=== PATIENT | male | born 2000 | race Caucasian/White ===

== ENCOUNTER 2020-01-16 09:01 | Outpatient (CLI) | payer BC, SELFPAY ==
--- NOTE | 2020-01-16 09:00 | DI.RAD_ITS ---
EXAM: XR LUMBAR SPINE COMPLETE INDICATION: acute left low back pain, ?pars defect. COMPARISON: No exams were available for comparison TECHNIQUE: 2D digital imaging was performed. FINDINGS: Mild anterior wedging of the T10, T11, L1, L2 and L3 vertebral bodies. Schmorl's nodes are seen at t hese levels. There is [id number] narrowing of the L1-2 and L2-3 disc spaces. There is overlap of bony structures at the L5 level on the oblique images. There is probable left L5 spondylolysis. No spondylolisthesis is seen. IMPRESSION: Chronic appearing mild vertebral body deformities with Schmorl's nodes at these levels. Probable left L5 spondylolysis. DATA REPOSITORY: RADIATION DOSE DELIVERED:
== END 2020-01-16 09:21 ==
PROVIDERS: PCP Pediatrics; Visit Provider Student in an Organized Health Care Education/Training Program
DX: M54.5 Low back pain (principal); M51.44 Schmorl's nodes, thoracic region; M51.46 Schmorl's nodes, lumbar region
CPT/HCPCS: 72110

== ENCOUNTER 2020-02-03 00:51 | Outpatient (CLI) | payer BC, SELFPAY ==
--- NOTE | 2020-02-03 11:04 | DI.NM_ITS ---
EXAM: NM BONE SCAN WHOLE BDY W/SPECT CLINICAL HISTORY: ?L5 PARS DEFECT, M43.00 SPONDYLOSIS SITE UNSPECIFIED. TECHNIQUE: Injected Dose: 24 mCi Tc-99m MDP Delayed Images: 2-[address] was performed. COMPARISON: No exams were available for comparison FINDINGS: Symmetric axial uptake. Bilateral renal excretion is identified. There is a focus of increased radiot racer uptake on the left in the lumbar spine corresponding to the pars defect at L5. Note is made of bilateral L5 pars defects. No spondylolisthesis is present. Multiple Schmorl's nodes are identified in the lower thoracic and lumbar spine. IMPRESSION: Focus of increased radiotracer uptake corresponding to the left pars defect at L5. DATA REPOSITORY:
== END 2020-02-03 01:11 ==
PROVIDERS: PCP Pediatrics; Visit Provider Student in an Organized Health Care Education/Training Program
DX: M43.06 Spondylolysis, lumbar region (principal); M51.45 Schmorl's nodes, thoracolumbar region
CPT/HCPCS: 78306; 78830

== ENCOUNTER 2020-07-01 02:26 | Outpatient (CLI) | payer BC, SELFPAY ==
[2020-07-02 09:10] LABS: Hemoglobin S Screen Negative (Negative)
== END 2020-07-01 02:46 ==
PROVIDERS: PCP Pediatrics; Visit Provider Nurse Practitioner Family
DX: Z13.0 Encounter for screening for diseases of the blood and blood-forming organs and certain disorders involving the immune mechanism (principal)
CPT/HCPCS: 36415; 85660

== ENCOUNTER 2021-07-10 17:58 | Emergency (ER) | payer BC, SELFPAY ==
[2021-07-10 18:06] VITALS: BP 137/65; PULSE 42; RESP 16; TEMP 37.4; O2SAT 100
--- NOTE | 2021-07-10 19:00 | DI.CT_ITS ---
Exam(s) CT NECK W EXAM: CT NECK W CLINICAL HISTORY: enlarged tonsils w/ large lymph nodes, r/o maligna. TECHNIQUE: Imaging Protocol: Axial CT angiography was performed with multi-slice acquisition and mu lti-planar and/or 3D reconstructions. CONTRAST MATERIAL: Intravenous: Omnipaque 350 Contrast volume:structured data in ml COMPARISON: No exams were available for comparison FINDINGS: There is adenoid hypertrophy in the nasopharynx. Both tonsillar pillars are symmetrically prominent causing some narrowing of the oropharynx at this l evel. However, there is no discrete ring-enhancing abscess discernible. Free edge of the epiglottis appears unremarkable as do the valleculae I and aryepiglottic folds. The re is no evidence of mass at the level of the vocal cords and subglottic airway. Thyroid gland size is normal. No obvious thyroid nodules. The parotid and submandibular glands appear unremarkable. There are multiple enlarged lymph nodes both sides the neck. Osseous: Cervical vertebrae appear unremarkable. IMPRESSION: 1. Symmetrical enlargement of both tonsillar pillars as well as tissue in the nasopharynx which is mo st probably hypertrophied adenoid tissue. There is no obvious abscess. Bilateral cervical adenopath y is noted. 2. First consideration is for infectious etiology but cannot exclude lymphoma and other lymphoprolife rative disease is. Correlation with clinical findings and history recommended. This study 1st read by [facility]. RADIATION DOSE DELIVERED: 505.28mGy.cm Total DLP DATA REPOSITORY: All CT scans at this facility are submitted to the National Radiology Data Registry (NRDR) Dose Index Registry (DIR) with the [employer] (ACR). RADIATION OPTIMIZATION: All CT scans at this facility use at least one of these dose optimization te chniques: automated exposure control; mA and/or kV adjustment per patient size (includes targeted exa ms where dose is matched to clinical indication); or iterative reconstruction.
--- NOTE | 2021-07-10 19:26 | ED.GENADUL_ITS ---
Discharge Plan Disposition Patient Disposition: HOME Condition: Good Discharge Details Clinical Impression: Enlarged tonsils, Acute adenitis, Mononucleosis Primary Care Provider: Shane Sadlaña ED Provider: Jase Crandall Home Meds and New Rx's Prescriptions: No Action No Known Home Meds RF: 0 Discharge Instructions Instructions: Mononucleosis (ED), Adenitis (ED) Additional Instructions: At this time you have mild tonsillitis and adenitis. This is likely from a virus/mononucleosis. Please take Tylenol and Motrin as needed. As we have discussed together you would like to hold off on steroids until you see Dr. Menezes tomorrow. Please follow-up closely with him at your appointment. One of the side effects from mono is that you can have an enlarged spleen, please be cautious to avoid any trauma to your flanks that could cause trauma to your spleen. If you notice any worsening of your symptoms, or any new symptoms such as vomiting, diarrhea, fever, chills, shortness of breath, chest pain, numbness, weakness, or fainting , please return immediately to the emergency department for reevaluation. Please follow up with your primary care provider as soon as possible for reassessment and reevaluation. As always, it was a pleasure participating in your medical care today. Referrals: Calvin Menezes MD [ [facility] STAFF PHYSICIAN] - Medical Decision Making 20-year-old male with a past medical history of Chiari malformation, and cauliflower ear presents today for evaluation of large tonsils and enlarged lymph nodes. Patient states that for the past 5 months he has noticed an enlargement of his tonsils and his lymph nodes in his neck. He denies any event that brought it on. He states that 2 weeks ago they were sore and painful but they are now completely painless and cause no pain. Is concerned with her size fell and that is why he came in today. He denies any difficulty swallowing or drinking. He denies any trauma. He denies any family history of malignancy. He denies any fever, chills, night sweats, or weight loss, bone pain. He does state that he had something similar to this a few years ago but it went away on its own. He denies any other complaints at this time. She denies being scratched by a cat, or owning a cat for that reason. He states that he does go back to college in [place] in 5 days. Physical exam demonstrates notably enlarged tonsils, tonsils are between a grade 2 and 3, there is tonsil stones but no evidence of pus purulence or redness. No tenderness, no signs of peritonsillar abscess. Patient has a notably large posterior tonsillar/oropharyngeal space, and so there is surprisingly no evidence of airway compromise whatsoever, no signs of compromise of the space or area of the posterior oropharynx secondary to his large size in general. Patient also has 2 notably enlarged lymph nodes anterior to the sternocleidomas toid. He denies any complaints whatsoever of difficulty swallowing drinking or breathing. And this would be supported clinically as well. No signs of rapid airway compromise at this time. Differential is broad but includes Bartonella Montaño, cat scratch fever, mono, or less likely but still concerning lymphoma leukemia. Based on history most of these would actually be somewhat unlikely given his lack of other exam findings and clinical historical components, we will still evaluate for these concerning etiologies. We will get a CT scan of the neck, perform send out test for Bartonella, and check for mono here. We will do a strep swab. No indications at all at this time for airway securement as he appears notably stable and controlled over the last 5 months. Additionally the patient specifically notes no acute changes in the last 2 weeks in regards to size. 7:48 PM Father is now at bedside, and ancillary clinical history that although the tonsils have not changed in size over the last few months the lymph nodes on his anterior neck have changed and the most notable increase was within the past week to week and a half. [address] scan result demonstrate evidence of adenoiditis and tonsillitis no evidence of peritonsillar abscess or for that matter significant adenopathy or lymphoproliferative abrasion just below the tonsils itself. There does otherwise appear to be adenopathy in general. Patient demonstrates no elevated white count, lymphocytes slightly elevated at 5.34, with a 28% predominance. There is some atypical lymphocytes. Single band. No left shift, no neutrophil predominance. Electrolytes normal, pending Bartonella send out testing. Schleicher screen is positive. Symptoms are certainly most consistent with mononucleosis causing notable lymphadenopathy and mild tonsillar enlargement. Family is very close with Dr. Menezes, and have already contacted him personally and will be following up with Dr. George tomorrow. We discussed risks and benefits of steroids, and at this point we decided to hold off on steroids until the patient sees Dr. Menezes tomorrow, at which point after evaluation by ENT they may decide to pursue steroids. However with no evidence of airway compromise whatsoever I see no indication currently to start the patient on steroids emergently now. Discussed with family the need for close ENT follow-up, and reassessment. Di scussed red flags which to return. Also discussed importance of avoiding any trauma to the flank secondary to potential for spleen enlargement, although at this time the patient has no evidence of splenomegaly on exam. I have extensively reviewed the treatment plan and discharge instructions with the patient and their family. I have addressed all patient concerns at this time. The patient and family was made aware of what symptoms to monitor for that would warrant a return to the emergency department. Discussed the plan with the patient and family, they demonstrate verbal understanding and agreement with our assessment and plan at this time. The documentation in this chart was dictated using [employer] dictation software. Please excuse any dictation errors. FINDINGS: Nasopharynx: Diffuse enlargement of the adenoids. Oropharynx: There is bilateral enlargement of the tonsillar pillars which demonstrate irregular striated enhancement and produce partial effacement of the oropharyngeal airway. No evidence of phlegmon formation or discrete peritonsillar abscess is detected. Hypopharynx: Unremarkable. Larynx: Unremarkable. Normal epiglottis. Retropharyngeal space: Unremarkable. Submandibular/Parotid glands: Normal. Glands are normal in size. Thyroid: Normal. No enlarged or calcified nodules. Lymph nodes: Bilateral submandibular, internal jugular and spinal accessory chain adenopathy is evident with suspected subcentimeter suppurative node also identified in the left internal jugular chain at the level of mandibular angle (see series 6). Trachea: Visualized trachea is unremarkable. Lungs: Unremarkable as visualized. Bones/joints: Unremarkable. No acute fracture. Soft tissues: Unremarkable. No significant soft tissue swelling. IMPRESSION: 1. Suspected adenoiditis and tonsillitis as detailed above with no peritonsillar abscess detected. Bilateral cervical adenopathy is also identified as above. Lymphoma and other lymphoproliferative disorders could also produce a similar appearance and correlation with clinical data is necessary. 2. No other soft tissue masses, abnormal fluid collections or sites of adenopathy are detected within the remainder of the suprahyoid or infrahyoid neck. Thank you for allowing us to participate in the care of your patient. Dictated and Authenticated by: Sav Crespo MD 07/10/2021 8:39 PM Eastern Time ([place] & [place]) HPI General Date/Time Provider Initiated Documentation: 07/10/21 18:57 . HPI Narrative: 20-year-old male with a past medical history of Chiari malformation, and cauliflower ear presents today for evaluation of large tonsils and enlarged lymph nodes. Patient states that for the past 5 months he has noticed an enlargement of his tonsils and his lymph nodes in his neck. He denies any event that brought it on. He states that 2 weeks ago they were sore and painful but they are now completely painless and cause no pain. Is concerned with her size fell and that is why he came in today. He denies any difficulty swallowing or drinking. He denies any trauma. He denies any family history of malignancy. He denies any fever, chills, night sweats, or weight loss, bone pain. He does state that he had something similar to this a few years ago but it went away on its own. He denies any other complaints at this time. She denies being scratched by a cat, or owning a cat for that reason. He states that he does go back to college in [place] in 5 days. 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 GH shots 09/2014 Family History Mother No problems noted. Father No problems noted. Sister Nasal polyps Social History Smoking/Tobacco Use Status: Never Second Hand Exposure: No Smoking risk assessment performed?: Yes Alcohol Intake: never Drug use: Never Substance use type: does not use Adopted: No Caregiver/Support person: Yes (Live with Family still, sister at college) Foster care: No Household members: family Housing: house Number of Children: 0 number of grandchildren: 0 Communication Needs: None Education Level: college Details: Starting college fall 2019 Pets and animals: Yes (1 dog) Pets and animals: dog(s) Current gender identity: male What type of physical activity do you participate in: other Details: wrestling Seatbelt use: always Helmet use: Yes Helmet use: always Working smoke detector in home: Yes Firearms in home: No Do you feel safe at home: Yes Do you feel safe in your relationship?: Yes Exam Narrative Exam Narrative: 1.Const: Well-nourished, Well-developed, appearing stated age 2.Eyes: PERRL, no conjunctival injection, and symmetrical lids. 3.ENT: Atraumatic external nose and ears. Moist MM. Neck: Symmetric, trachea midline, No thyromegaly. Patient does have notably enlarged right-sided lymph node that appears to be about 4 to 5 cm on palpation, is also an enlarged left-sided lymph node as well. They appear to be anterior to sternocleidomastoid. Patient's tonsils are also enlarged, and I would label them as grade 2-3. However the patient is able to open extremely wide, and shows no signs of airway compromise at all. No signs of compromise of the posterior oropharyngeal space secondary not to the large size of his tonsils but rather the large size of his posterior oropharyngeal space. There are a few small tonsilloliths noted on the spot on the tonsils, but no evidence of purulence, pus, or redness. The left is slightly larger than the right. No evidence of peritonsillar abscess. 4.CVS: +S1/S2, No murmurs or gallops. Peripheral pulses 2+ and equal in all extremities. Brisk capillary refill in all extremities. 5.RESP: Unlabored respiratory effort. Clear to auscultation bilaterally. No wheezes rales or rhonchi 6.GI: Soft, Nontender/Nondistended, No hepatosplenomegaly. No guarding or rebound. 7.MSK: Normocephalic/Atraumatic, Extremities w/o deformity or ttp No cyanosis or clubbing, Normal movement of all extremities 8.Skin: Warm, Dry. No rashes or lesions. 9.Neuro: social media intern II-XII grossly intact. Sensation grossly intact, no focal neurolog ic deficits. 10.Psych: (AAO) x3. Appropriate mood and affect Course Vital Signs Vital signs: Vital Signs Temperature 37.4 C 07/10/21 18:06 Pulse 42 L 07/10/21 18:06 Respiratory Rate 16 07/10/21 18:06 Blood Pressure 137/65 07/10/21 18:06 Pulse Oximetry 100 07/10/21 18:06 Temperature 37.4 C 07/10/21 18:06 Temperature Source Temporal Artery Scan 07/10/21 18:06 Pulse 42 L 07/10/21 18:06 Respiratory Rate 16 07/10/21 18:06 Respiratory Effort Non-Labored 07/10/21 18:10 Blood Pressure 137/65 07/10/21 18:06 Blood Pressure Position Sitting 07/10/21 18:06 Pulse Oximetry 100 07/10/21 18:06 Oxygen Delivery Method Room Air 07/10/21 18:06 Oxygen Flow Rate 0 07/10/21 18:06 Pain Level 0 07/10/21 18:06
[2021-07-10 20:01] LABS: Abs Immature Grans 0.02 10^3/uL (0.0-0.06); HCT 42.1 % (40.0-50.0); HGB 14.6 g/dL (13.5-17.5); MCH 29.1 pg (27.0-33.0); MCHC 34.7 % (32.0-36.0); MCV 83.9 fL (80-95); MPV 9.8 fL (8.0-11.0); Nucleated RBC 0 %; Platelet Count 270 10^3/uL (130-400); RBC 5.02 10^6/uL (4.36-5.78); RDW 12.1 % (11.8-14.1); RDW-SD 35.6 fL; WBC 9.71 10^3/uL (4.4-10.8)
[2021-07-10] MEDS: Omnipaque 350 MG/ML 100 ML BTL IJ (20:01)
[2021-07-10] MEDS: Normal Saline Flush 10 ML SYR IVP (20:06)
[2021-07-10 20:09] LABS: ALT 23 U/L (16-63); AST 23 U/L (15-37); Albumin 4.2 g/dL (3.4-5.0); Alkaline Phosphatase 121 U/L (46-116); Anion Gap 9.4 mmol/L (3-11); BUN 10 mg/dL (7-18); Bilirubin, Total 0.6 mg/dL (0.2-1.0); CO2 28.6 mmol/L (21.0-32.0); CREATININE 0.9 mg/dL (0.70-1.30); Calcium 9.2 mg/dL (8.5-10.1); Chloride 102 mmol/L (98-107); Glucose 96 mg/dL (74-106); Potassium 3.5 mmol/L (3.5-5.1); Sodium 140 mmol/L (136-145); Total Protein 8.5 g/dL (6.4-8.2)
[2021-07-10 20:22] LABS: Mono Screening POSITIVE (Negative)
[2021-07-10 20:29] LABS: Absolute Lymphocyte Count 5.34 10^3/uL (1.2-3.4); Absolute Monocyte Count 0.87 10^3/uL (0.1-0.8); Atypical Lymphocytes % 27; Bands % 1
[2021-07-10 20:30] LABS: Diff Comment Manual Differential; RBC Morphology Normal
--- NOTE | 2021-07-10 20:40 | DI.VRAD_ITS ---
Addendum created by Sav Crespo MD on 07/10/2021 8:40:19 PM EDT: THIS REPORT CONTAINS FINDINGS THAT MAY BE CRITICAL TO PATIENT CARE. The findings were verbally communicated via telephone conference with JAMES ROSADO at 8:40 PM EDT on 07/10/2021. The findings were acknowledged and understood. Initial report created on 07/10/2021 8:39:53 PM EDT: PROCEDURE INFORMATION: Exam: CT Neck With Contrast Exam date and time: 07/10/2021 7:13 PM Age: 20 years old Clinical indication: Neck pain and throat pain; Patient HX: Enlarged tonsils w/ large lymph nodes, R/O maligna; Additional info: Neck discomfort started 5 months ago, increasing recently TECHNIQUE: Imaging protocol: Computed tomography images of the neck with contrast. Radiation optimization: All CT scans at this facility use at least one of these dose optimization techniques: automated exposure control; mA and/or kV adjustment per patient size (includes targeted exams where dose is matched to clinical indication); or iterative reconstruction. Contrast material: OMNIPAQUE 350; Contrast volume: 100 ml; Contrast route: INTRAVENOUS (IV); COMPARISON: NM BONE SCAN WHOLE BDY W/SPECT 02/03/2020 11:47 AM FINDINGS: Nasopharynx: Diffuse enlargement of the adenoids. Oropharynx: There is bilateral enlargement of the tonsillar pillars which demonstrate irregular striated enhancement and produce partial effacement of the oropharyngeal airway. No evidence of phlegmon formation or discrete peritonsillar abscess is detected. Hypopharynx: Unremarkable. Larynx: Unremarkable. Normal epiglottis. Retropharyngeal space: Unremarkable. Submandibular/Parotid glands: Normal. Glands are normal in size. Thyroid: Normal. No enlarged or calcified nodules. Lymph nodes: Bilateral submandibular, internal jugular and spinal accessory chain adenopathy is evident with suspected subcentimeter suppurative node also identified in the left internal jugular chain at the level of mandibular angle (see series 6). Trachea: Visualized trachea is unremarkable. Lungs: Unremarkable as visualized. Bones/joints: Unremarkable. No acute fracture. Soft tissues: Unremarkable. No significant soft tissue swelling. IMPRESSION: 1. Suspected adenoiditis and tonsillitis as detailed above with no peritonsillar abscess detected. Bilateral cervical adenopathy is also identified as above. Lymphoma and other lymphoproliferative disorders could also produce a similar appearance and correlation with clinical data is necessary. 2. No other soft tissue masses, abnormal fluid collections or sites of adenopathy are detected within the remainder of the suprahyoid or infrahyoid neck. Dictated and Authenticated by: Sav Crespo MD. Ordering:ARACELI Laguna MD
--- NOTE | 2021-07-10 21:21 | NUR.NOTE ---
Referral faxed to ENT to f/u josef tonsillitis, adenitis. Fax confirmation received.Nursing Note:
[2021-07-12 23:33] LABS: Bartonella Henselae IgG <1:128 titer (<1:128); Bartonella Henselae IgM <1:20 titer (<1:20); Bartonella Quintana IgG <1:128 titer (<1:128); Bartonella Quintana IgM <1:20 titer (<1:20)
== END 2021-07-10 21:07 | disposition home or self-care (01) ==
PROVIDERS: Emergency Provider Student in an Organized Health Care Education/Training Program; PCP Pediatrics
DX: J03.90 Acute tonsillitis, unspecified (principal); L04.0 Acute lymphadenitis of face, head and neck; B27.90 Infectious mononucleosis, unspecified without complication
CPT/HCPCS: 70491; 80053; 87880; 99285; 85025; 86308; 86611; 87081; 87798; 99284; J3490

== ENCOUNTER 2022-06-09 09:20 | Outpatient (CLI) | payer BC, SELFPAY | END 2022-06-09 09:21 | disposition home or self-care (01) | LOC: LBO 09:20 | PROVIDERS: Visit Provider Otolaryngology ==

== ENCOUNTER 2024-06-03 18:37 | Emergency (ER) | payer BC, SELFPAY ==
[2024-06-03 18:40] VITALS: BP 126/85; PULSE 53; RESP 15; TEMP 36.7; O2SAT 100
--- NOTE | 2024-06-03 19:32 | ED.GENADUL_ITS ---
Discharge Plan Disposition Patient Disposition: Home Condition: Good Discharge Details Clinical Impression: Lesion of neck Primary Care Provider: Darlin Zuñiga ED Provider: Jase Crandall Home Meds and New Rx's Prescriptions: No Action No Known Home Meds Discharge Instructions Instructions: Poison [place], Poison [place], Poison [place] ED Additional Instructions: At this time you have evidence of contact dermatitis which is likely secondary to poison [place] or poison [place]. There is a low chance that this may be secondary to herpes or bacterial infection. We have sent cultures to evaluate for this. If they return positive you will be contacted. In the meantime please apply the hydrocortisone cream 2-3 times per day to the affected area. Please do this for the next week. If you do not have any improvement you may need to be reassessed. If you do get any weeping or oozing from the lesions you can also apply a small amount of triple antibiotic ointment to that area to prevent any bacterial infection. If you notice any worsening of your symptoms, or any new symptoms such as vomiting, diarrhea, fever, chills, shortness of breath, chest pain, numbness, weakness, or fainting , please return immediately to the emergency department for reevaluation. Please follow up with your primary care provider as soon as possible for reassessment and reevaluation. As always, it was a pleasure participating in your medical care today. Referrals: Darlin Zuñiga MD [Primary Care Provider] - HPI General Date/Time Provider Initiated Documentation: 06/03/24 18:58 . HPI Narrative: 23-year-old male presents today for a lesion on his left neck. Patient states has been present for the last 3 to 4 days. It is not itchy. He does not know where it came from. Currently for his job he has been working outside, and has been exposed to multiple plants and brush. He denies any fever or chills. He does have a history of herpes in the past from gym mats from wrestling. He denies any lesions or exposures recently otherwise. He denies any fever or chills. No burning sensation. No other complaints at this time. Related Data Home Medications Medication Instructions Recorded Confirmed Unknown [No Known Home Meds] 07/29/17 06/03/24 Allergies Allergy/AdvReac Type Severity Reaction Status Date / Time No Known Allergies Allergy Verified 06/03/24 18:44 General Stated Complaint: RashLesion JATINDER: 4 Review of Systems All systems reviewed & are unremarkable except as noted in HPI and below Exam Narrative Exam Narrative: 1.Const: Well-nourished, Well-developed, appearing stated age 2.Eyes: PERRL, no conjunctival injection, and symmetrical lids. 3.ENT: Atraumatic external nose and ears. Moist MM. Neck: Symmetric, trachea midline, No thyromegaly. 4.CVS: +S1/S2, No murmurs or gallops. Peripheral pulses 2+ and equal in all extremities. Brisk capillary refill in all extremities. 5.RESP: Unlabored respiratory effort. Clear to auscultation bilaterally. No wheezes rales or rhonchi 6.GI: Soft, Nontender/Nondistended, No hepatosplenomegaly. No guarding or rebound. 7.MSK: Normocephalic/Atraumatic, Extremities w/o deformity or ttp No cyanosis or clubbing, Normal movement of all extremities 8.Skin: Warm, Dry. Patient's left neck demonstrates 8-9 vesicular/contact dermatitis-like lesions. Minimal weeping in the area. No erythema, no warmth. Easily deroofed 9.Neuro: marketing regional consultant II-XII grossly intact. Sensation grossly intact, no focal neurologic deficits. 10.Psych: (AAO) x3. Appropriate mood and affect Course Vital Signs Vital signs: Vital Signs Temperature 36.7 C 06/03/24 18:40 Pulse 53 L 06/03/24 18:40 Respiratory Rate 15 06/03/24 18:40 Blood Pressure 126/85 06/03/24 18:40 Pulse Oximetry 100 06/03/24 18:40 Temperature 36.7 C 06/03/24 18:40 Temperature Source Temporal Artery Scan 06/03/24 18:40 Pulse 53 L 06/03/24 18:40 Respiratory Rate 15 06/03/24 18:40 Respiratory Effort Normal 06/03/24 18:43 Blood Pressure 126/85 06/03/24 18:40 Blood Pressure Position Sitting 06/03/24 18:40 Pulse Oximetry 100 06/03/24 18:40 Oxygen Delivery Method Room Air 06/03/24 18:40 Oxygen Flow Rate 0 06/03/24 18:40 Pain Level 0 06/03/24 18:40 Medical Decision Making 23-year-old male presents today for a lesion on his left neck. Patient states has been present for the last 3 to 4 days. It is not itchy. He does not know where it came from. Currently for his job he has been working outside, and has been exposed to multiple plants and brush. He denies any fever or chills. He does have a history of herpes in the past from gym mats from wrestling. He denies any lesions or exposures recently otherwise. He denies an y fever or chills. No burning sensation. No other complaints at this time. Patient's left neck demonstrates 8-9 vesicular/contact dermatitis-like lesions. Minimal weeping in the area. No erythema, no warmth. Easily deroofed. Differential is highest for a contact dermatitis secondary to his work status, however it also includes less likely herpetic component. Patient denies any recent contact with herpes, he denies any genital lesions, he denies any recent med wrestling. Symptoms appear to be most concerning for an oil-based contact dermatitis for that area. Will prescribe 2.5% hydrocortisone cream. We did deroofed the lesions and sent cultures for both herpes and bacterial studies. Will recommend triple antibiotic ointment for potential bacterial infection over this. Patient will be contacted if these results are positive. Patient will be discharged home. No other clinical evidence of shingles systemic involvement or other abnormality at this time. I have extensively reviewed the treatment plan and discharge instructions with the patient and their family. I have addressed all patient concerns at this time. The patient and family was made aware of what symptoms to monitor for that would warrant a return to the emergency department. Discussed the plan with the patient and family, they demonstrate verbal understanding and agreement with our assessment and plan at this time. The documentation in this chart was dictated using Imagine K12 dictation software. Please excuse any dictation errors. Additionally symptoms are inconsistent with measles or chickenpox. 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 End[facility]. GH shots 09/2014 Medical History Lumbar spondylolysis Cauliflower ear, right ear Enlarged tonsils Asymptomatic. 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 Father No problems noted. Sister Nasal polyps Social History Smoking/Tobacco Use Status: Never Second Hand Exposure: No Smoking risk assessment performed?: Yes Alcohol Intake: current Alcohol Intake frequency: a few times a week Drug use: Never Substance use type: does not use Adopted: No Caregiver/Support person: Yes (Live with Family still, sister at college) Foster care: No Household members: family Housing: house Number of Children: 0 number of grandchildren: 0 Communication Needs: None Education Level: college Details: Starting college fall 2019 Pets and animals: Yes (1 dog) Pets and animals: dog(s) Current gender identity: male What type of physical activity do you participate in: other Details: wrestling Seatbelt use: always Helmet use: Yes Helmet use: always Working smoke detector in home: Yes Firearms in home: No Do you feel safe at home: Yes Do you feel safe in your relationship?: Yes PAWSS Have you Been Recently Intoxicated or Drunk Within the Last 30 days?: No Have you Ever Experienced Previous Episodes of Alcohol Withdrawal?: No Have you ever Experienced Withdrawal Seizures?: No Have you ever Experienced Delirium Tremens(DT)s?: No Have you ever undergone Alcohol Rehabilitation Treatment (i.e, inpt ot outpatient treatment programs)?: No Have you ever Experienced Blackouts?: No Have you ever Combined Alcohol with other Downers within the last 90 days?: No Have you ever Combined Alcohol with any other Substance of Abuse during the last 90 days?: No Result: 0
[2024-06-06 00:15] LABS: HSV 1 DNA Result Positive (Negative); HSV 2 DNA Result Negative (Negative)
== END 2024-06-03 19:46 | disposition home or self-care (01) ==
PROVIDERS: Emergency Provider Student in an Organized Health Care Education/Training Program
DX: D23.4 Other benign neoplasm of skin of scalp and neck (principal)
CPT/HCPCS: 87529; 99282; 87070; 87205